=== PATIENT | female | born 1990 | race Hispanic/Latino ===

== ENCOUNTER 2016-06-19 13:18 | Emergency (ER) | payer BC ==
[2016-06-19] MEDS ORDERED: Amoxicillin/Potassium Clav 500 MG TAB ONE (13:36)
[2016-06-19] MEDS ORDERED: predniSONE 20 MG TAB ONE (13:36)
== END 2016-06-19 13:54 | disposition home or self-care (01) ==
LOC: NAV ERS 13:18
DX: J20.9 Acute bronchitis, unspecified (principal); F32.9 Major depressive disorder, single episode, unspecified; Z79.899 Other long term (current) drug therapy
CPT/HCPCS: J7506; J7620

== ENCOUNTER 2017-01-08 08:55 | Emergency (ER) | payer BC ==
[2017-01-08] MEDS ORDERED: Ibuprofen 200 MG TAB ONE (09:30)
[2017-01-08] MEDS ORDERED: predniSONE 20 MG TAB ONE (09:30)
[2017-01-08] MEDS ORDERED: Azithromycin 500 MG VIAL ONE (09:31)
[2017-01-08] MEDS ORDERED: Azithromycin 250 MG TAB ONE (09:31)
== END 2017-01-08 09:40 | disposition home or self-care (01) ==
LOC: NAV ERS 08:55
DX: J02.9 Acute pharyngitis, unspecified (principal); F32.9 Major depressive disorder, single episode, unspecified; Z87.891 Personal history of nicotine dependence
CPT/HCPCS: 99283; J0456; J7506

== ENCOUNTER 2018-10-25 18:59 | Emergency (ER) | payer SELFPAY ==
[2018-10-25 20:09] LABS: Bilirubin Negative (Negative); Blood, Urine Negative (Negative); Clarity Clear (Clear); Glucose, Urine (Dipstick) Negative (Negative); Leukocyte Negative (Negative); Nitrite Negative (Negative); Protein, Urine (Dipstick) Negative (Neg-Trace); Urobilinogen 0.2 mg/dL (Less than 2)
[2018-10-25 20:20] LABS: Pregnancy Test - Urine (BHCG) Negative (Negative); Pregu Control Background? CLEAR/WHITE (CLR/WHITE); Pregu Control Bar Appear? YES (CONTROL BAR); Specific Gravity 1.025 (1.002-1.036)
== END 2018-10-25 20:44 | disposition home or self-care (01) ==
LOC: NAV ERS 18:59
DX: B36.0 Pityriasis versicolor (principal); R20.2 Paresthesia of skin; F41.9 Anxiety disorder, unspecified; F31.9 Bipolar disorder, unspecified; Z79.899 Other long term (current) drug therapy
CPT/HCPCS: 36416; 81003; 81025; 99284